=== PATIENT | female | born 1955 | race Caucasian/White ===

== ENCOUNTER 2020-12-10 10:03 | Outpatient (CLI) | payer MEDICARE, SELFPAY | END 2020-12-10 10:04 | disposition home or self-care (01) | LOC: ANHAUDASC 10:08 | PROVIDERS: PCP Family Medicine; Visit Provider Physician Assistant | DX: H90.3 Sensorineural hearing loss, bilateral (principal) | CPT/HCPCS: 92557; 92567 ==

== ENCOUNTER 2021-07-26 15:18 | Outpatient (CLI) | payer MEDICARE, SELFPAY ==
[2021-07-26 15:50] LABS: Basophils Percent Auto 0.5 % (0.2-1.2); Eosinophils Absolute Auto 0.1 K/mm3 (0-0.3); Eosinophils Percent Auto 1.4 % (0-4.4); Hematocrit 36.7 % (37.0-47.0); Hemoglobin 12.1 g/dL (12.0-15.0); Immature Granulocyte Absolute 0.01 K/mm3 (0.00-0.031); Immature Granulocyte Percent A 0.2 % (0-0.5); Lymphocytes Absolute Auto 2.83 K/mm3 (0.9-3.2); Lymphocytes Percent Auto 50.8 % (18.3-44.2); Mean Corpuscular Hemoglobin 32.9 pg (26-34); Mean Corpuscular Volume 99.7 fl (80-100); Mean Platelet Volume 10.9 fl (7.4-10.4); Monocytes Absolute Auto 0.3 K/mm3 (0.1-0.6); Monocytes Percent Auto 5.6 % (2.6-8.5); Neutrophils Absolute Auto 2.3 K/mm3 (1.3-6.7); Neutrophils Percent Auto 41.5 % (45.5-73.1); Platelet Count Result 149 k/mm3 (150-375); Red Blood Count 3.68 M/mm3 (4.2-5.4); Red Cell Distribution Width 12.1 % (11.5-14.5); White Blood Count 5.6 K/mm3 (4.5-10.0)
[2021-07-26 16:08] LABS: Alanine Aminotransferase 23 U/L (6-35); Albumin Level 4.4 g/dL (3.5-5.1); Alkaline Phosphatase 106 U/L (38-126); Anion Gap 5 mmol/L (8-16); Aspartate Amino Transferase 31 U/L (14-36); Bilirubin,Total 0.3 mg/dL (0.2-1.3); Blood Urea Nitrogen 14 mg/dL (7-17); Calcium 8.8 mg/dL (8.4-10.2); Carbon Dioxide 29 mmol/L (22-30); Chloride 105 mmol/L (98-107); Cholesterol 231 mg/dL (0-200); Estimated Glomerular Filt Rate > 60; Glucose 89 mg/dL (65-110); HDL Direct 65 mg/dL; Sodium 139 mmol/L (137-145); Triglycerides 110 mg/dL (<150)
[2021-07-26 16:19] LABS: LDL Cholesterol Direct 111 mg/dL
[2021-07-26 16:49] LABS: Vitamin D 25 Hydroxy 74.9 ng/mL
[2021-07-26 17:12] LABS: Folic Acid 18.2 ng/mL (2.76->20)
[2021-07-30 02:09] LABS: Insulin Level Total 2.8 uIU/mL (<=19.6)
[2021-07-30 14:52] LABS: Carbamazepine Tegretol 8.4 mcg/mL (4.0-12.0)
== END 2021-07-26 15:19 | disposition home or self-care (01) ==
LOC: ANHLAB 15:21
PROVIDERS: PCP Family Medicine; Visit Provider Psychiatry & Neurology Psychiatry
DX: G31.84 Mild cognitive impairment of uncertain or unknown etiology (principal); E78.2 Mixed hyperlipidemia; Z12.2 Encounter for screening for malignant neoplasm of respiratory organs; E55.9 Vitamin D deficiency, unspecified
CPT/HCPCS: 36415; 80053; 80061; 80156; 82306; 82607; 82746; 83036; 83525; 84443; 85025

== ENCOUNTER 2021-08-07 10:09 | Outpatient (CLI) | payer MEDICARE, SELFPAY ==
--- NOTE | ~2021-08-07 | MR_ITS ---
EXAMINATION: MR brain/brain stem wo/w con DATE: 08/07/2021 11:07 INDICATION: Mild cognitive disorder. TECHNIQUE: Magnetic resonance imaging (MRI) of the brain and brainstem was performed without and with 11 mL MultiHance intravenous contrast. COMPARISON: Head CT 06/04/2018 FINDINGS: There are scattered areas of nonspecific increased T2-weighted signal intensity in the cere bral white matter, right basal ganglia, and rebekah. There is no intracranial hemorrhage, acute infarcti on, or abnormal intracranial mass lesion. The ventricles are normal in size. There are small bilatera l mastoid effusions. The orbits are normal. The paranasal sinuses are clear. IMPRESSION: 1. Moderate nonspecific cerebral white matter disease and disease of the right basal ganglia and rebekah , which likely represents chronic small vessel ischemic disease. Reviewed, dictated and finalized at location B. IMPRESSION: 1. Moderate nonspecific cerebral white matter disease and disease of the right basal ganglia and rebekah, which likely represents chronic small vessel ischemic d isease.
== END 2021-08-07 10:10 | disposition home or self-care (01) ==
PROVIDERS: PCP Family Medicine; Visit Provider Psychiatry & Neurology Psychiatry
DX: F09 Unspecified mental disorder due to known physiological condition (principal); R93.0 Abnormal findings on diagnostic imaging of skull and head, not elsewhere classified
CPT/HCPCS: 70553; A9577